=== PATIENT | male | born 1990 | race Caucasian/White ===

== ENCOUNTER 2023-02-21 14:35 | Emergency (ER) | payer OTHER, SELFPAY ==
[2023-02-21 14:36] VITALS: BP 130/63; PULSE 79; RESP 18; TEMP 37.1; O2SAT 98; BMI 34.2
--- NOTE | 2023-02-21 14:42 | ECG_ITS ---
APPROVED REPORT Exam: Resting ECG HR:78 bpm ECG Measurements Heart Rate 78 AXES HI 164 P 47 QRSd 94 QRS 51 QT 372 T 44 QTc 405 Conclusion SINUS RHYTHM NORMAL ECG UNCONFIRMED REPORT Electronically signed by : Mj Galarza MD 02/22/2023 07:15:29
--- NOTE | 2023-02-21 14:52 | XR_ITS ---
PROCEDURE INFORMATION: Exam: XR Chest Exam date and time: 02/21/2023 2:59 PM Age: 32 years old Clinical indication: Other: Syncopy; Patient HX: Patient passed out on Wednesday and again today. Smoker; Additional info: Syncope TECHNIQUE: Imaging protocol: Radiologic exam of the chest. Views: 1 view. COMPARISON: No relevant prior studies available. FINDINGS: Lungs: Unremarkable. No consolidation. Pleural spaces: Unremarkable. No pleural effusion. No pneumothorax. Heart/Mediastinum: Cardiac silhouette appears borderline enlarged on this portable chest. Bones/joints: Unremarkable. IMPRESSION: Borderline cardiomegaly otherwise negative chest.
[2023-02-21 14:54] VITALS: BP 121/59; BP 124/59; BP 130/63; PULSE 74; PULSE 79; PULSE 96
--- NOTE | 2023-02-21 15:01 | PC.NURSE ---
Fall bracelet and allergy bracelet applied.
--- NOTE | 2023-02-21 15:02 | HMH.EDGENADL ---
Discharge Plan Disposition Patient Disposition: Home, Self-Care Referrals Follow up/Referrals: Jerod Lazaro MD [Staff Physician] - See instructions (for holter monitor and/or echo ) ProviderTonja MD [Primary Care Provider] - See instructions Activity Restrictions/Add. Instructions Additional Instructions/Restrictions: You may follow-up with your primary care doctor or Dr. Lazaro as needed for an outpatient Holter monitor and an echo of your heart. Return with any worsening symptoms and maintain hydration with electrolyte and glucose containing solution such as Gatorade or Powerade. Clinical Impressions Clinical Impression: Syncope due to orthostatic hypotension, Acute dehydration Instructions Patient Instructions: DI for Syncope in Adults (Fainting), DI for Syncope in Children (Fainting) Discharge ED Provider: Abundio Cm General Adult HPI General Chief complaint: Syncope Stated complaint: passed out 2 times within 3 days Time Seen by Provider: 02/21/23 14:45 Mode of Arrival: Ambulatory Source of Information: Patient Limitations: No Limitations Description of Symptoms (Recalled from ER Triage Doc. by RN): pt presents to ED stating that since Wednesday he has passed out twice. 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 pt denies dizziness or ear pain but states after the incident occurs he does experience blurry vision. pt alert and oriented. History of Present Illness HPI narrative: Patient is a 32-year-old male here with 2 episodes of syncope. States that he works outside was in his normal state of health last Wednesday was out in the heat that was almost 100 degrees all day long without any food also had minimal amount of water was at a stoplight where he felt lightheaded for extended period of time and lost consciousness. He had no chest pain or shortness of breath no abdominal pain no headache or other neurologic symptoms. No seizure-like activity did not have any loss of urine and did not bite his tongue and had no blood in his mouth. Today he had a similar episode again out working significant mount of sweat and states that he woke up not sure exactly what happened. Again no seizure-like activity that he is aware of but there is no one around him this time. No loss of urine and again no biting his tongue. He has no history of seizures prior to this. No history of any cardiac or pulmonary disease. He had no chest pain or shortness of breath with any of these episodes. He did state that he had significant lightheadedness with change in position from lying to sitting and from sitting to standing. No family history of any sudden cardiac . He is never had any issues with exertional activity in the past. Related Data Allergies Allergy/AdvReac Type Severity Reaction Status Date / Time ALIVIA Allergy Unknown SWELLING Uncoded 07/27/17 15:[address] [facility] Disclaimer: The information contained in this section may have been updated after the patient was seen, as this information can be updated by other users. Medical History (Updated 02/21/23 @ 15:26 by Karl Nguyen MD) H/O intravenous drug use in remission Hepatitis C Social History Smoking Status: Current every day smoker alcohol intake: never current occupational status: other Travel in the last 8 weeks: None ROS Obtained: Yes All systems reviewed & no additional complaints except as documented Physical Exam General General appearance: alert Respiratory Respiratory exam: Present normal lung sounds bilaterally; Absent respiratory distress Cardiovascular Cardiovascular exam: Present regular rate and normal rhythm Neurological Exam Neurological exam: Present alert and oriented X3 Medical Decision Making Cristiano Inquiry Pt receiving controlled substance: No Vital Signs: 02/21/23 14:36 02/21/23 14:54 Temperature 98.7 F [place]
[2023-02-21 15:06] LABS: Basophils % 0.3 % (0.1-2.0); Eosinophils # 0.1 K/mm3 (0.0-0.4); Eosinophils % 1.9 % (0.1-12.0); Hematocrit 39.3 % (42.0-52.0); Hemoglobin 12.6 g/dL (14.1-18.0); Lymphocytes # 2.8 K/mm3 (0.7-4.5); Lymphocytes % 41.1 % (10-50); Mean Corpuscular HGB Conc 32.1 g/dL (31.8-35.4); Mean Corpuscular Hemoglobin 28.8 pg (27.0-31.2); Mean Corpuscular Volume 89.6 fl (80-94); Mean Platelet Volume 7.3 fl (7.4-10.4); Monocytes # 0.4 K/mm3 (0.1-1.0); Monocytes % 5.2 % (1.7-9.3); Neutrophils # 3.5 K/mm3 (1.8-7.8); Neutrophils % 51.6 % (37.0-80.0); Platelet Count 249 K/mm3 (142-424); Red Blood Count 4.38 M/mm3 (4.60-6.20); Red Cell Distribution Width 14.1 % (11.5-17.5); White Blood Count 6.9 K/mm3 (4.8-10.8)
[2023-02-21 15:17] LABS: Anion Gap 12.1 mEq/L (5-15); Blood Urea Nitrogen 12 mg/dl (9-20); Calcium 8.7 mg/dl (8.4-10.2); Carbon Dioxide 26 mmol/L (22.0-30.0); Chloride 108 mmol/L (98-107); Creatinine Clearance Estimated 155 mL/min (50-200); Estimated Glomerular Filt Rate 87 ml/min (>60); GFR (African American) 105 ML/MIN (>60); Glucose 109 mg/dl (74-100); Potassium 4.1 mmoL/L (3.5-5.1); Sodium 142 mmol/L (136-145)
[2023-02-21 15:27] LABS: Alanine Aminotransferase 44 U/L (12-78); Albumin Level 4.1 g/dl (3.5-5.0); Alkaline Phosphatase 79 U/L (38-126); Aspartate Amino Transferase 38 U/L (17-59); Bilirubin,Indirect 0.4 mg/dL (0.0-0.9); Bilirubin,Total 0.4 mg/dl (0.2-1.3); Bilirubin,Unconjugated 0.4 mg/dL (0.0-1.1); Magnesium 1.8 mg/dl (1.6-2.3); Phosphorous 3.6 mg/dl (2.5-4.5); Total Protein,Serum 8.2 g/dl (6.3-8.2)
[2023-02-21 15:31] LABS: Troponin I < 0.01 ng/ml (0.00-0.034)
[2023-02-21 16:44] VITALS: BP 103/56; PULSE 71; RESP 18; TEMP 36.8; O2SAT 97
== END 2023-02-21 16:47 | disposition home or self-care (01) ==
PROVIDERS: Student in an Organized Health Care Education/Training Program; Emergency Provider Emergency Medicine
DX: E86.0 Dehydration (principal); R55 Syncope and collapse; F17.200 Nicotine dependence, unspecified, uncomplicated
CPT/HCPCS: 71045; 80048; 80076; 83735; 84100; 84484; 85025; 93005; 96360; 99285

== ENCOUNTER 2024-02-18 16:57 | Emergency (ER) | payer OTHER, SELFPAY ==
--- NOTE | 2024-02-18 17:33 | EXP.UTC ---
Discharge Plan Disposition Patient Disposition: Home, Self-Care Condition: Good Prescriptions Prescriptions: New cephalexin 500 mg capsule 500 mg PO QID 10 Days Qty: 40 0RF methylprednisolone 4 mg Tablets,Dose Pack 4 mg PO DIRECTED 6 Days Qty: 21 0RF Rx Instructions: Take 1 pack as directed for 6 days ondansetron 4 mg Tablet,Disintegrating 4 mg PO Q8H PRN (Reason: Nausea) Qty: 12 0RF Referrals Follow up/Referrals: Provider,Referral, MD [Primary Care Provider] - See instructions Activity Restrictions/Add. Instructions Additional Instructions/Restrictions: Drink plenty of fluids. Take tylenol or ibuprofen for pain or fever. Take the medications as directed. Follow up with your regular doctor. GO TO THE ER FOR ANY WORSENING SYMPTOMS Clinical Impressions Clinical Impression: Sinusitis Stand Alone Forms Stand Alone Forms: Work/School Release Instructions Patient Instructions: Sinusitis, DI for Sinusitis Discharge ED Provider: Cecilio Mcmillan [facility] [place] General Stated complaint: Stomach pain with diarrhea Time Seen by Provider: 02/18/24 17:33 Related Data Previous Rx's Medication Instructions Recorded cephalexin 500 mg capsule 500 mg PO QID 10 days #40 caps 02/18/24 methylprednisolone 4 mg tablets in 4 mg PO DIRECTED 6 days #21 tabs 02/18/24 a dose pack ondansetron 4 mg disintegrating 4 mg PO Q8H PRN Nausea #12 tabs 02/18/24 tablet Allergies Allergy/AdvReac Type Severity Reaction Status Date / Time benzocaine [From Cetacaine] Allergy Verified 02/18/24 17:55 butamben [From Cetacaine] Allergy Verified 02/18/24 17:55 lidocaine Allergy Verified 02/18/24 17:55 tetracaine Allergy Verified 02/18/24 17:[address] [facility] Disclaimer: The information contained in this section may have been updated after the patient was seen, as this information can be updated by other users. Medical History (Updated 02/18/24 @ 18:08 by Cecilio Mcmillan APRN) H/O intravenous drug use in remission Hepatitis C Surgical History (Updated 02/18/24 @ 17:56 by Margo Gil RN) History of removal of cyst History of tonsillectomy Social History (Updated 02/21/23 @ 16:34 by Karl Nguyen MD) Smoking Status: Current every day smoker alcohol intake: never current occupational status: other Travel in the last 8 weeks: None ROS Obtained: Yes All systems reviewed & no additional complaints except as documented Constitutional Constitutional: Reports poor appetite Eyes Eyes: Reports system reviewed and no additional complaints, except as documented ENT Ears, Nose, Mouth, and Throat: Reports as per HPI Cardiovascular Cardiovascular: Reports system reviewed and no additional complaints, except as documented and Denies chest pain Respiratory Respiratory: Denies shortness of breath, Denies chest congestion, Reports cough, Denies stridor and Denies wheezing Gastrointestinal Gastrointestingal: Reports system reviewed and no additional complaints, except as documented; Denies abdominal pain, diarrhea or vomiting Musculoskeletal Musculoskeletal: Reports system reviewed and no additional complaints, except as documented and Denies arthralgias Integumentary/Breasts Skin/Breast: Reports system reviewed and no additional complaints, except as documented and Denies rash Neurologic Neurologic: Denies paresthesias Allergic/Immunologic Allergic/Immunologic: Denies wheezing Physical Exam General General appearance: alert and in no apparent distress Eye Eye exam: Present normal appearance, PERRL and EOMI ENT ENT exam: Present mucous membranes moist and normal external ear exam Expanded ENT Exam External ear exam: Present normal external inspection TM/Canal exam: Bilateral TM: erythema and bulging Nose exam: Absent sinus tenderness Nasal speculum exam: Bilateral: normal Mouth exam: Present normal external inspection; Absent drooling Teeth exam: Present normal inspection Throat exam: Present tonsillar erythema and tonsillomegaly Neck Neck exam: Present normal inspection, full ROM and trachea midline; Absent tenderness, lymphadenopathy or thyromegaly Chest Chest inspection: Present normal inspection and symmetric chest wall rise; Absent tenderness or rash Respiratory Respiratory exam: Present normal lung sounds bilaterally; Absent respiratory distress, wheezes, stridor or accessory muscle use Cardiovascular Cardiovascular exam: Present regular rate, normal rhythm and normal heart sounds Abdominal Exam Abdominal exam: Present soft; Absent distention, tenderness, guarding, rebound or rigidity Extremities Exam Extremities exam: Present normal inspection, full ROM and normal capillary refill; Absent tenderness or calf tenderness Back Exam Back exam: Present normal inspection and full ROM; Absent tenderness Neurological Exam Neurological exam: Present alert and oriented X3 Psychiatric Psychiatric exam: Present normal affect and normal mood Skin Skin exam: Present warm, dry, intact and normal color Lymphatic Lymphatic Findings: no adenopathy Medical Decision Making Medical Records Medical records reviewed: No I reviewed the patient's medical records. Cristiano Inquiry Pt receiving controlled substance: No
[2024-02-18 17:35] VITALS: BP 129/76; PULSE 65; RESP 18; TEMP 37.2; O2SAT 99; BMI 39.5
[2024-02-18 18:09] VITALS: BP 129/76; PULSE 65; RESP 18; TEMP 37.2; O2SAT 99
== END 2024-02-18 18:12 | disposition home or self-care (01) ==
PROVIDERS: Emergency Provider Nurse Practitioner Family
DX: J01.90 Acute sinusitis, unspecified (principal); R11.0 Nausea
CPT/HCPCS: 99204; 99212; G0463

== ENCOUNTER 2024-05-31 17:49 | Emergency (ER) | payer OTHER, SELFPAY ==
[2024-05-31 18:00] VITALS: BP 150/83; PULSE 76; RESP 19; TEMP 36.9; O2SAT 99; BMI 38.7
--- NOTE | 2024-05-31 18:40 | EXP.UTC ---
Discharge Plan Disposition Patient Disposition: Home, Self-Care Condition: Good Prescriptions Prescriptions: New ondansetron 4 mg tablet,disintegrating 4 mg PO Q8H PRN (Reason: nausea and vomiting) Qty: 10 0RF Referrals Follow up/Referrals: Carmella Ayala [Primary Care Provider] - See instructions Activity Restrictions/Add. Instructions Additional Instructions/Restrictions: Monitor temperature. Seek treatment if fever develops. Follow-up immediately if new or worse symptoms worsen or no noticeable improvement over 48 hours. Increase fluids such as water, Gatorade, Powerade, juice or Pedialyte with limited formula/dietary in children No food is okay as long as you are drinking. Once ready to eat start bland such as bananas, rice, applesauce, toast. Contagious until no diarrhea, vomiting, fever times 48 hours without medication Avoid antidiarrheals unless told otherwise. Best to let the virus run its course. Follow-up immediately for new or worsening symptoms or no noticeable improvement over the next 48 hours. Clinical Impressions Clinical Impression: Nausea & vomiting Instructions Patient Instructions: Nausea and Vomiting-Adult Print Language Print Language: Spanish Discharge ED Provider: Tonny Dawn [facility] [place] HPI General Stated complaint: vomiting,headache Mode of Arrival: Ambulatory Source of Information: Patient Limitations: No Limitations Time Seen by Provider: 05/31/24 18:26 Description of Symptoms (Recalled from Triage Doc. by RN): PATIENT C/O VOMITING AND HEADACHE X 2 DAYS HEENT Symptoms (Recalled from RN notes): Yes Resp Symptoms (Recalled from RN notes): No Skin Symptoms (Recalled from RN notes): No MS Symptoms (Recalled from RN notes): No Functional Status (Recalled from RN notes): WNL History of Present Illness Provider Complaint: 33-year-old male presents for headache, nausea, vomiting, and sore throat since Wednesday Related Data Previous Rx's ?Medication ?Instructions ?Recorded ondansetron 4 mg disintegrating 4 mg PO Q8H PRN nausea and 05/31/24 tablet vomiting #10 tabs Allergies Allergy/AdvReac Type Severity Reaction Status Date / Time benzocaine [From Cetacaine] Allergy Verified 02/18/24 17:55 butamben [From Cetacaine] Allergy Verified 02/18/24 17:55 lidocaine Allergy Verified 02/18/24 17:55 tetracaine Allergy Verified 02/18/24 17:55 Worker's Comp Is this a Worker's Comp case?: No [facility] Disclaimer: The information contained in this section may have been updated after the patient was seen, as this information can be updated by other users. Medical History , [employer]) H/O intravenous drug use in remission Hepatitis C Surgical History , [employer]) History of removal of cyst History of tonsillectomy Social History , [employer]) Smoking Status: Current every day smoker alcohol intake: never current occupational status: other Travel in the last 8 weeks: None ROS Obtained: Yes Systems reviewed as appropriate & no additional complaints except as documented Physical Exam General General appearance: alert and in no apparent distress Eye Eye exam: Present normal appearance and PERRL ENT ENT exam: Present mucous membranes moist and TM's normal bilaterally Expanded ENT Exam Throat exam: Present tonsillar erythema Respiratory Respiratory exam: Present normal lung sounds bilaterally Cardiovascular Cardiovascular exam: Present regular rate and normal rhythm Neurological Exam Neurological exam: Present alert, oriented X3 and CN II-XII intact Skin Skin exam: Present warm and intact Medical Decision Making Medical Records Medical records reviewed: Yes I reviewed the patient's medical records. Screening: Per USPSTF and CDC recommendations, given the prevalence of disease in our region, it is our hospital?s policy to screen for HIV and viral Hepatitis for all patients aged 18 and over and those with ongoing risk factors. Cristiano Inquiry Pt receiving controlled substance: No Cristiano was queried for this patient: No Vital Signs: 05/31/24 18:00 Temperature 98.5 F Temperature Source Oral Pulse Rate [Left Brachial] 76 Respiratory Rate 19 Blood Pressure [Left Arm] 150/83 H Blood Pressure Mean [Left Arm] 105 Blood Pressure Source [Left Arm] Automatic Cuff Blood Pressure Position [Left Arm] Sitting 02 Sat by Pulse Oximetry 99 Oxygen Delivery Method Room Air Lab Data Lab results reviewed: Yes I reviewed the patient's lab results.
[2024-05-31 18:58] VITALS: BP 150/83; PULSE 76; RESP 19; TEMP 36.9; O2SAT 99
[2024-05-31 19:00] LABS: UTC Strep Screen (Rapid) Negative (Negative)
== END 2024-05-31 19:06 | disposition home or self-care (01) ==
PROVIDERS: Emergency Provider Nurse Practitioner Family; PCP Nurse Practitioner Family
DX: R11.2 Nausea with vomiting, unspecified (principal)
CPT/HCPCS: 87635; 87880; 99213; G0381